=== PATIENT | male | born 1985 | race Caucasian/White ===

== ENCOUNTER 2025-07-30 18:36 | Emergency (ER) | payer OTHER, SELFPAY ==
[~2025-07-30 18:36] MED LIST: Iopamidol 370 76% 100 ML VIAL ONE
[2025-07-30] MEDS ORDERED: Famotidine/PF 20 mg/2ml Vial ONE (19:00)
[2025-07-30] MEDS ORDERED: Lidocaine Viscous Sol 2% 15 ml UD Cup ONE (19:00)
[2025-07-30] MEDS ORDERED: Mag-Al Plus 1200/1200/120 MG (30 mL) UDCUP ONE (19:00)
[2025-07-30 19:31] LABS: #Basophils 0.2 thou/uL (0.0-0.2); #Eosinophils 0.1 thou/uL (0.0-0.7); #Lymphocytes 3.0 thou/uL (1.20-3.40); #Monocytes 1.0 thou/uL (0.11-0.59); #Neutrophils 8.1 thou/uL (1.40-6.50); %Basophils 1.4 % (0.0-1.0); %Eosinophils 1.0 % (0.0-10.0); %Lymphocytes 24.1 % (21.0-51.0); %Monocytes 8.3 % (0.0-10.0); %Neutrophils 65.1 % (42.0-75.0); Hematocrit 45.4 % (42.0-52.0); Hemoglobin 15.1 g/dL (14.0-18.0); Mean Corpuscular Hemoglobin 26.4 pg (27.0-31.0); Mean Corpuscular Volume 79.2 fl (78.0-98.0); Platelet Count 260 10x3/uL (130-400); Red Blood Cell (RBC) Count 5.73 mill/uL (4.70-6.10); White Blood Cell (WBC) Count 12.4 10x3/uL (4.8-10.8)
[2025-07-30 19:44] LABS: Troponin I Less than 0.010 ng/mL (< 0.028)
[2025-07-30 19:47] LABS: ALT (SGPT) 82 U/L (Less than 45); AST (SGOT) 52 U/L (11-34); Albumin 4.2 g/dL (3.1-4.5); Alkaline Phosphatase 68 U/L (40-110); Anion Gap 16 mmol/L (10-20); BUN (Urea Nitrogen) 15 mg/dL (8.9-20.6); Bilirubin, Total 0.2 mg/dL (0.3-1.2); Calc. Creatinine Clearance 0 mL/min (70-130); Calcium 9.7 mg/dL (7.8-10.44); Carbon Dioxide 26 mmol/L (22-29); Chloride 100 mmol/L (98-107); Globulin 3.7 g/dL (2.4-3.5); Glucose 120 mg/dL (70-105); Lipase 24 U/L (8-78); Potassium 4.1 mmol/L (3.5-5.1); Sodium 138 mmol/L (136-145)
[2025-07-30] MEDS ORDERED: Ondansetron PF 4 MG/2 ML Vial ONE ×2 (19:56→21:40)
[2025-07-30] MEDS ORDERED: Sucralfate 1 GM TAB ONE (22:18)
[2025-07-30 22:37] LABS: Troponin I Less than 0.010 ng/mL (< 0.028)
[2025-07-30] MEDS ORDERED: niCARdipine 25 MG/10 ML SDV ONE (23:30)
== END 2025-07-31 | disposition short-term general hospital (02) ==
LOC: NAV ERS 18:36
DX: N17.9 Acute kidney failure, unspecified (principal); K81.9 Cholecystitis, unspecified; K82.1 Hydrops of gallbladder; K76.0 Fatty (change of) liver, not elsewhere classified; I16.1 Hypertensive emergency; R74.01 Elevation of levels of liver transaminase levels; E66.01 Morbid (severe) obesity due to excess calories
CPT/HCPCS: 36415; 71045; 74177; 80053; 83605; 83690; 84484; 85025; 93005; 96361; 96365; 96375; 96376; J1308; J2270; J2405; J7050; J7120; Q9967